=== PATIENT | male | born 1970 | race Caucasian/White ===

== ENCOUNTER 2022-07-21 13:38 | Outpatient (CLI) | payer OTHER, SELFPAY ==
[2022-07-21 13:19] LABS: Chloride* 103 mmol/L (96-114); Potassium* 4.5 mmol/L (3.6-5.1); Sodium* 137 mmol/L (135-149)
[2022-07-21 13:21] LABS: Cholesterol* 177 mg/dL (90-199)
[2022-07-21 13:22] LABS: Blood Urea Nitrogen* 13 mg/dL (7-30); Calcium* 9.9 mg/dL (8.4-10.6); Carbon Dioxide* 28 mmol/L (20-32); Estimated Glomerular Filt Rate 91 ml/min; Glucose* 99 mg/dL (60-115); HDL Cholesterol* 44 mg/dL (>=40); LDL Cholesterol Calculated 110 mg/dL (<100); Triglycerides* 116 mg/dL (40-149)
[2022-07-21 13:40] LABS: PSA Screen* 0.75 ng/mL (0.10-4.00)
== END 2022-07-21 13:39 | disposition home or self-care (01) ==
PROVIDERS: PCP Family Medicine; Visit Provider Family Medicine
DX: Z00.00 Encounter for general adult medical examination without abnormal findings (principal); E66.9 Obesity, unspecified; Z13.6 Encounter for screening for cardiovascular disorders; Z12.5 Encounter for screening for malignant neoplasm of prostate
CPT/HCPCS: 80048; 80061; 84153

== ENCOUNTER 2023-05-12 13:53 | Emergency (ER) | payer OTHER, SELFPAY ==
--- NOTE | 2023-05-12 | CRLHL7_ITS ---
For Patients: As a result of the Cures Act, medical imaging exams and procedure reports are released immediately into your electronic medical record. You may view this report before your referring provider. If you have questions, please contact your health care provider. INDICATION: Injury. TECHNIQUE: Three views. FINDINGS: There is no radiographically evident acute/displaced fracture/dislocation. Mild chronic change is present. Well corticated bony density adjacent to the lateral epicondyle of distal humerus. Tiny spur at the olecranon. No radiographically evident joint effusion. Bone density normal. Dictated by Javi Guevara MD @ 05/12/2023 4:07:03 PM (Electronically Signed)
[2023-05-12 14:04] VITALS: BP 145/84; PULSE 92; RESP 18; TEMP 36.4; O2SAT 98; BMI 38.7
[2023-05-12] MEDS: ACETAMINOPHEN 500 MG TABLET 1000 MG PO (15:58)
--- NOTE | 2023-05-12 16:47 | ED_ITS ---
HPI - Extremity Injury (Upper) General Date Seen: 05/12/23 Chief Complaint: Extremity Pain/Injury, Upper Stated Complaint: R elbow injury, can't straighten elbow Time Seen by Provider: 05/12/23 13:54 Source: patient and family Mode of arrival: ambulatory Limitations: no limitations History of Present Illness HPI narrative: This very nice 53-year-old gentleman, presents here with a right arm injury. He was lifting something up and felt a pop in his right arm, his pain around his brachial area of his right arm. Says he has really limitation any sort of right elbow flexion, causing a both pain and weakness with this. He is right-hand dominant, does noted in pain or injury to his head or neck, presents here with his for help. This just occurred approximately 1 hour ago. He did feel a pop when this occurred. Hand dominance: Right Place: home Severity: moderate Relieving factors: immobilization Exacerbating factors: movement of extremity Associated symptoms: denies other symptoms Related Data Home Medications Medication Instructions Recorded Confirmed famotidine 20 mg tablet 20 mg PO QDAY 05/17/22 05/12/23 omeprazole .ROUTE 05/12/23 Previous Rx's Medication Instructions Recorded glycopyrrolate 2 mg tablet 2 mg PO DAILY #90 tabs 11/22/22 Allergies Allergy/AdvReac Type Severity Reaction Status Date / Time No Known Drug Allergies Allergy Verified 07/25/22 08:44 Review of Systems Status of ROS: Reports: 6 or more systems reviewed and unremarkable except as noted in History and below PFSH PFS Medical History Preoperative testing ?Z01.818 - Encounter for other preprocedural examination (ICD-10) Encounter for routine history and physical examination of adult ?Z00.00 - Encounter for general adult medical examination without abnormal findings (ICD-10) Cough ?R05.9 - Cough, unspecified (ICD-10) Surgical History Status post tonsillectomy and adenoidectomy ?Z90.89 - Acquired absence of other organs (ICD-10) Status post surgery for recurrent dislocation of shoulder ?Z98.890 - Other specified postprocedural states (ICD-10) Social History Narrative: adopted Smoking Status: Never smoker Do you use any of these nicotine containing products: None Second hand tobacco smoke exposure: No How often do you have a drink containing alcohol: 2-3 times a week AUDIT-C Alcohol total score: 3 Non-prescribed substance use: denies use Little interest or pleasure in doing things: not at all Feeling down, depressed, or hopeless: several days service: No Exam Narrative: Exam Narrative: On examination room 2 he is alert oriented in no apparent distress he definitely does have some weakness of his right biceps but has full range of motion. Tender in the brachial area and also over the upper forearm region. Supination pronation also cause him some discomfort. Supplier Quality Specialist strengths are equal bilaterally right-hand dominant no shoulder pain or injury noted brachial and radial pulses are normal his right arm and a sensations all normal in his normal movement of his cervical spine in flexion extension lateral flexion rotation. Const: Vital Signs, click to edit/add: Vital Signs - 24 hr 05/12/23 14:04 Temperature 97.6 F Pulse Rate [Pulse Oximeter] 92 Respiratory Rate 18 Blood Pressure [Le ft Upper Arm] 145/84 H Pulse Oximetry 98 Oxygen Delivery Me thod Room Air Documenting provider has reviewed patient's vital signs: yes Course Course Hospital Course: I reviewed his x-rays, I do not see any evidence of a fracture. Patient: ANNIE MARCOS Facility:?[facility] Patient ID:?[id number] Site Patient ID:?[id number]. Site :?[id number] Study:?XRay Extremity Right ELBOW-05/12/2023 3:31:21 PM Ordering Physician:?Asiya Guzman Final Report: INDICATION: Injury. TECHNIQUE: Three views. FINDINGS: There is no radiographically evident acute/displaced fracture/dislocation. Mild chronic change is present. Well corticated bony density adjacent to the lateral epicondyle of distal humerus. Tiny spur at the olecranon. No radiographically evident joint effusion. Bone density normal. Dictated by Javi Guevara MD @ 05/12/2023 4:07:03 PM (Electronic Signature) Using ultrasound is able the using the linear probe over this area, is able to see disruption within the muscle and the tendon, I think this is in the actual tendon itself. And I think it will need to be repaired. I discussed with him we will sling this, till he follows up with the orthopod on Sunday. Vital Signs Vital signs: Initial Vital Signs Temperature 97.6 F 05/12/23 14:04 Temperature Source Temporal Artery Scan 05/12/23 14:04 Pulse Rate 92 05/12/23 14:04 Respiratory Rate 18 05/12/23 14:04 Blood Pressure 145/84 H 05/12/23 14:04 Blood Pressure Mean 104 05/12/23 14:04 Blood Pressure Position Sitting 05/12/23 14:04 Pulse Oximetry 98 05/12/23 14:04 Oxygen Delivery Method Room Air 05/12/23 14:04 Vital Signs Temperature 97.6 F 05/12/23 14:04 Pulse Rate 92 05/12/23 14:04 Respiratory Rate 18 05/12/23 14:04 Blood Pressure 145/84 H 05/12/23 14:04 Pulse Oximetry 98 05/12/23 14:04 Oxygen Delivery Method Room Air 05/12/23 14:04 Temperature 97.6 F 05/12/23 14:04 Pulse Rate 92 05/12/23 14:04 Respiratory Rate 18 05/12/23 14:04 Blood Pressure 145/84 H 05/12/23 14:04 Pulse Oximetry 98 05/12/23 14:04 Oxygen Delivery Method Room Air 05/12/23 14:04 Discharge Plan Discharge Clinical Impression: Tear of distal tendon of biceps Patient Disposition: Home w/ Parent or Adult Condition: Stable Instructions: Muscle Strain (ED), How to Use a Sling (ED), Tendon Rupture (ED) Additional Instructions: Appointment with Dr. Fuller on Sunday, wear sling till then, Tylenol ibuprofen for the discomfort. X-rays are negative, I suspect this is going to be surgical ,sorry OFC apt Sunday with Dr. Bartlett, arrival time 1040. 07[facility]. Apt card given to Pt. Prescriptions: No Action omeprazole .ROUTE famotidine 20 mg tablet 20 mg PO QDAY Hold Instructions: Order Change glycopyrrolate 2 mg tablet 2 mg PO DAILY Qty: 90 1RF Follow Up/Referrals: Ivan David MD [Primary Care Provider] - Brock Bartlett MD [Staff Physician] - Stand Alone Forms: Doodle Info Instructions
== END 2023-05-12 16:34 | disposition home or self-care (01) ==
PROVIDERS: Emergency Provider Family Medicine; PCP Family Medicine
DX: S46.211A Strain of muscle, fascia and tendon of other parts of biceps, right arm, initial encounter (principal); X50.0XXA Overexertion from strenuous movement or load, initial encounter
CPT/HCPCS: 73080; 99283; A9270

== ENCOUNTER 2024-03-21 09:01 | Outpatient (CLI) | payer OTHER, SELFPAY ==
--- OUTSIDE RECORDS SUMMARY | 2024-03-21 09:06 | XMS_ITS | Clinical Summary ---
Author Organization [facility] Address [place], [place] [address] Care Team Providers Care Parole Officer Name Role Phone García Holder [facility] Primary Care Provider Unav ailable Allergies No known active allergies Medications Medication Sig Dispensed Refills Start Date End Date Status glycopyrrolate (ROBINUL FORTE) 2 mg tabletIndications:Axill balbina hyperhidrosis TAKE ONE TABLET BY MOUTH THREE TIMES DAILY 30 tablet 12/07/2016 Active Active Problems Problem Noted Date Diagnosed Date Obesity 08/10/2014 Axillary hyperhidrosis Overview: on glycopyrrolate 2 mg Immunizations Name Administration Dates Next Due Influenza, IIV3 (Age >=3 years) 07/15/2014 Social History Tobacco Use Types Packs/Day Years Used Date Smoking Tobacco: Never Alcohol Use Standard Drinks/Week Comments Yes 0 (1 standard drink = 0.6 oz pur e alcohol) Sex and Gender Information Value Date Recorded Sex Assigned at Not on file Gender Identity Not on file Sexual Orientation Not on file Obstetrics History Last Filed Vital Signs Vital Sign Reading Time Taken Comments Blood Pressure 116/78 08/10/2014 7:38 AM FRUIT DRYER Pulse 72 08/10/2014 7:38 AM FRUIT DRYER Temperature 36.1 ??C (96.9 ??F) 08/10/2014 7:38 AM CS T Respiratory Rate - - Oxygen Saturation - - Inhaled Oxygen Concentration - - Weight 127 kg (280 lb) 08/10/2014 7:38 AM FRUIT DRYER Height 180.3 cm (5' 11) 08/10/2014 7:38 AM FRUIT DRYER Body Mass Index 39.05 08/10/2014 7:38 AM FRUIT DRYER Plan of Treatment Health Maintenance Due Date Last Done Comments Tdap 1981 Depression screening for age 12+ 1982 HIV for age 15-65 1985 BMI (ht and wt on same day) for age 18+ 02/20/1988 Hepatitis C screening for ag e 18-79 02/20/1988 Tetanus booster 1990 Colonoscopy through age 75 2015 Lipids for age 45-75 08/10/2019 08/10/2014 Zoster (shingles) series for age 50+ (1 of 2) 02/20/2020 COVID-19 vaccine series (2022-24 season) 2023 Influenza for age 50-64 06/01/2024 07/15/2014 Pneumococcal series for age 6-64 Aged Out No longer eligible based on patient's age to complete this topic Procedures Procedure Name Priority Date/Time Associated Diagnosis Comments LIPID PANEL W REFLEX MEASURED LDL Routine 08/10/2014 8:24 AM FRUIT DRYER Routine general medical examination at a health care facility Obesity from Last 3 Months or Most Recently Relevant to Health Maintenance Results * (ABNORMAL) LIPID PANEL W REFLEX MEASURED LDL (08/10/2014 8:24 AM FRUIT DRYER) CHOLESTEROL,TOTAL 197 100 - 199 mg/dL 08/10/2014 4:20 PM FRUIT DRYER [facility] TRIGLYCERIDES 74 <150 mg/dL 08/10/2014 4:20 PM FRUIT DRYER [facility] HDL CHOLESTEROL 52 >40 mg/dL 4 4:20 PM FRUIT DRYER [facility] NON-HDL CHOLESTEROL 145(H) <145 mg/dl 08/10/2014 4:20 PM FRUIT DRYER [facility] CHOL/HDL RATIO 3.79 <4.50 08/10/2014 4:20 PM FRUIT DRYER [facility] LDL CHOLESTEROL 130 <=130 mg/dL 08/10/2014 4:20 PM FRUIT DRYER [facility] PATIENT STATUS FASTING 08/10/2014 4:20 PM FRUIT DRYER [facility] Blood specimen (specimen) BLOOD SPECIMEN / Unknown Venipuncture / Unknown 08/10/2014 8:24 AM FRUIT DRYER 08/10/2014 9:24 AM FRUIT DRYER [facility] [address] [place] [address], [place] from Last 3 Months or Most Recently Relevant to Health Maintenance Care Teams Parole Officer Relationship Specialty Start Date End Date García Holder PCP - General 08/05/14
== END 2024-03-21 09:02 | disposition home or self-care (01) ==
PROVIDERS: PCP Family Medicine; Visit Provider Family Medicine
DX: Z00.00 Encounter for general adult medical examination without abnormal findings (principal); E66.9 Obesity, unspecified; K21.9 Gastro-esophageal reflux disease without esophagitis; R61 Generalized hyperhidrosis; Z12.5 Encounter for screening for malignant neoplasm of prostate; Z13.6 Encounter for screening for cardiovascular disorders
CPT/HCPCS: 80053; 80061; G0103

== ENCOUNTER 2024-04-25 09:55 | Outpatient (CLI) | payer OTHER, SELFPAY | END 2024-04-25 09:56 | disposition home or self-care (01) | PROVIDERS: PCP Family Medicine; Visit Provider Family Medicine | DX: A60.02 Herpesviral infection of other male genital organs (principal); B37.49 Other urogenital candidiasis | CPT/HCPCS: 87529 ==

== ENCOUNTER 2025-03-27 10:34 | Outpatient (CLI) | payer OTHER, SELFPAY | END 2025-03-27 10:35 | disposition home or self-care (01) | PROVIDERS: PCP Family Medicine; Visit Provider Family Medicine | DX: E66.9 Obesity, unspecified (principal); K21.9 Gastro-esophageal reflux disease without esophagitis; R53.83 Other fatigue; Z01.818 Encounter for other preprocedural examination; Z12.5 Encounter for screening for malignant neoplasm of prostate | CPT/HCPCS: 80053; 80061; 84443; G0103 ==

== ENCOUNTER 2025-04-16 07:54 | Outpatient (CLI) | payer OTHER, SELFPAY ==
--- NOTE | 2025-04-16 09:23 | P.ANES_ITS ---
Anesthesia Charges Start Date/Time Anesthesia Start Date: 04/16/25 Anesthesia Start Time: 08:37 Stop Date/Time Anesthesia Stop Date: 04/16/25 Anesthesia Stop Time: 09:21 Coding CPT Codes CPT Codes: ANES UPR LWR GI NDSC PX - 48293 ([id number]) QX - PERSONAL LINES AGENT SVC W/ MD MED DIRECTION, QK - CHANGE ANALYST 2-4 CNCRNT ANES PROC, P3 - PATIENT W/SEVERE SYS DISEASE
--- NOTE | 2025-04-16 09:23 | W.ANESCHARGE ---
Anesthesia Charges Start Date/Time Anesthesia Start Date: 04/16/25 Anesthesia Start Time: 08:37 Stop Date/Time Anesthesia Stop Date: 04/16/25 Anesthesia Stop Time: 09:21 Coding CPT Codes CPT Codes: ANES UPR LWR GI NDSC PX - 27639 ([id number]) QX - SAGGER MAKER SVC W/ MD MED DIRECTION, QK - MIGRATION AGENT 2-4 CNCRNT ANES PROC, P3 - PATIENT W/SEVERE SYS DISEASE
--- NOTE | 2025-04-16 09:24 | P.ANES_ITS ---
Anesthesia Charges Start Date/Time Anesthesia Start Date: 04/16/25 Anesthesia Start Time: 08:37 Stop Date/Time Anesthesia Stop Date: 04/16/25 Anesthesia Stop Time: 09:21 Coding CPT Codes CPT Codes: ANES UPR LWR GI NDSC PX - 11701 ([id number]) QK - PLATEMAKER 2-4 CNCRNT ANES PROC, QX - METAL FABRICATOR HELPER SVC W/ MED DIRECTION, P3 - PATIENT W/SEVERE SYS DISEASE
--- NOTE | 2025-04-16 09:24 | W.ANESCHARGE ---
Anesthesia Charges Start Date/Time Anesthesia Start Date: 04/16/25 Anesthesia Start Time: 08:37 Stop Date/Time Anesthesia Stop Date: 04/16/25 Anesthesia Stop Time: 09:21 Coding CPT Codes CPT Codes: ANES UPR LWR GI NDSC PX - 62600 ([id number]) QK - BRAND SPECIALIST 2-4 CNCRNT ANES PROC, QX - PALEOBOTANIST SVC W/ MED DIRECTION, P3 - PATIENT W/SEVERE SYS DISEASE
== END 2025-04-16 07:55 | disposition home or self-care (01) ==
LOC: OP CLINIC 07:55
PROVIDERS: PCP Family Medicine; Visit Provider Surgery
DX: Z12.11 Encounter for screening for malignant neoplasm of colon (principal); Z86.0100 Personal history of colon polyps, unspecified; D12.5 Benign neoplasm of sigmoid colon; K21.9 Gastro-esophageal reflux disease without esophagitis
CPT/HCPCS: 00813; 43239; 45385; 88305; J2704; J3010; J3490

== ENCOUNTER 2025-09-15 13:54 | Outpatient (CLI) | payer OTHER, SELFPAY ==
--- NOTE | 2025-09-22 13:56 | W.PM.SLEEP ---
Sleep Study Details Details Interpreting Provider: Vickie Date of Sleep Study: 09/15/25 Sleep Study Details: STUDY TYPE:? Home unattended ? BMI:? 38.49 ORDERING PROVIDER:? Frankie INDICATION:? Concern for sleep apnea ? SLEEP SUMMARY:? 452 minutes monitored RESPIRATORY SUMMARY:? AHI 12.3 Low oxygen 83 9.2% of study oxygen less than 90% Snoring 97% PERIODIC LIMB MOVEMENTS OF SLEEP:? Not recorded CARDIAC:? Range 40-72, mean 48.4 beats per minute IMPRESSION:? Bradycardia was noted. Mild obstructive sleep apnea with significant hypo oxygenation. RECOMMENDATION: Weight loss is recommended. Other treatment options include CPAP, dental appliance and/or airway expansion surgery. Once effective therapy is established an overnight oximetry should be performed.
== END 2025-09-15 13:55 | disposition home or self-care (01) ==
LOC: SLEEP 13:55
PROVIDERS: PCP Family Medicine; Visit Provider Family Medicine
DX: G47.33 Obstructive sleep apnea (adult) (pediatric) (principal); R00.1 Bradycardia, unspecified
CPT/HCPCS: 95806